=== PATIENT | male | born 1970 | race Caucasian/White ===

== ENCOUNTER 2025-08-18 23:47 | Emergency (ER) | payer OTHER ==
[~2025-08-18] VITALS: Ht 170.2 cm; Wt 100.0 kg
[2025-08-19] MEDS: ACETAMINOPHEN 500 MG TABLET PO ONE (02:05)
[2025-08-19 04:41] VITALS: BP 126/77; PULSE 70; RESP 16; TEMP 97.3; O2SAT 99
== END 2025-08-19 05:40 ==
LOC: EMS 23:50
DX: S01.01XA Laceration without foreign body of scalp, initial encounter (principal); Z79.82 Long term (current) use of aspirin; W19.XXXA Unspecified fall, initial encounter; Y93.89 Activity, other specified; Y92.89 Other specified places as the place of occurrence of the external cause; Y99.8 Other external cause status
CPT/HCPCS: 70450; 99284